=== PATIENT | female | born 1950 | race Caucasian/White ===

== ENCOUNTER 2018-04-04 02:21 | Outpatient (RCR) | payer MEDICARE, SELFPAY ==
[2018-04-04] MEDS: Normal Saline Flush 10 ML SYR IVP (09:57)
== END 2018-04-17 23:59 | disposition home or self-care (01) ==
LOC: INF 02:21
PROVIDERS: PCP Nurse Practitioner Family; Visit Provider Internal Medicine
DX: M81.0 Age-related osteoporosis without current pathological fracture (principal)
CPT/HCPCS: 36415; 82306; 84156; 84166; 84520; 86335; 96365; 82565; J3489

== ENCOUNTER 2018-04-04 02:31 | Outpatient (CLI) | payer MEDICARE, SELFPAY ==
[2018-04-04 08:58] LABS: BUN 16 mg/dL (7-18); CREATININE 0.57 mg/dL (0.55-1.02)
[2018-04-04 10:36] LABS: Vitamin D 25 Total 26.3 ng/ml (30-100)
[2018-04-07 15:45] LABS: Albumin 100 %; Total Protein <4 mg/dL
== END 2018-04-04 02:51 ==
PROVIDERS: PCP Nurse Practitioner Family; Visit Provider Internal Medicine Endocrinology, Diabetes & Metabolism
DX: M81.0 Age-related osteoporosis without current pathological fracture (principal)
CPT/HCPCS: 36415; 82306; 84156; 84166; 84520; 86335; 82565

== ENCOUNTER 2019-03-02 11:15 | Emergency (ER) | payer MEDICARE, SELFPAY ==
[2019-03-02 11:20] VITALS: BP 169/81; PULSE 78; RESP 16; TEMP 36.8; O2SAT 97
--- NOTE | 2019-03-02 11:48 | DI.RAD_ITS ---
EXAM: XR SHOULDER LT COMPLETE 2+V and left humerus and left elbow INDICATION: pain, injury. COMPARISON: XR ELBOW LT COMPLETE from 03/02/2019 XR HUMERUS LT from 03/02/2019 TECHNIQUE: 2D digital imaging was performed. FINDINGS: There is a comminuted nondisplaced fracture through the surgical neck of left humerus. There does ap pear to be extension into the greater tuberosity. There is inferior subluxation of the humeral head relative to the glenoid. No other fracture or dislocation is appreciated. The bones are osteopenic. No radiopaque foreign bodies are seen in the soft tissues. IMPRESSION: Comminuted nondisplaced fracture involving the surgical neck of the left humerus. Inferior subluxation of the humeral head relative to the glenoid.
--- NOTE | 2019-03-02 14:22 | ED.GENADUL_ITS ---
Discharge Plan Disposition Patient Disposition: HOME Condition: Good Discharge Details Chief Complaint: Orthopedic Clinical Impression: Fracture, humerus Primary Care Provider: Anuja Flood ED Provider: Tracy Rivas Home Meds and New Rx's Prescriptions: No Action trazodone 50 MG tablet 25 mg PO HS RF: 0 ibuprofen 200 MG tablet 200 mg PO DAILY PRN PRNRF: 0 Lubricant Eye (PG-PEG 400)(PF) 1 EACH dropperette 1 ea Ophthalmic DIRECTED RF: 0 Discharge Instructions Instructions: Proximal Humerus Fracture (ED) Additional Instructions: Ice to the area of pain. Use sling for 3 to 5 days. Tylenol for soreness if needed. Rest activities as tolerated Follow-up with orthopedic doctor as a outpatient in the next week. Please call for earliest available appointment. Return to the emergency room for any worsening, concerns or alarming symptoms sooner if needed specifically for numbness, tingling or weakness of the hand or arm Referrals: Maurice Barrios MD [ [facility] STAFF PHYSICIAN] - Discharge Data Discharge Date/Time-TO BE ENTERED AT DEPARTURE: 03/02/19 14:35 Medical Decision Making Is a 5-year-old patient presents 4 days after a trip and fall. Resulting in left arm pain. Patient denies any other identifiable injuries. Patient has no sign or symptom of head injury at this time. Patient has isolated left arm pain on exam. Proximal humeral tenderness. Difficulty with any overhead range of motion. X-rays were obtained. Patient declines any medication service at this time. FINDINGS: There is a comminuted nondisplaced fracture through the surgical neck of left humerus. There does appear to be extension into the greater tuberosity. There is inferior subluxation of the humeral head relative to the glenoid. No other fracture or dislocation is appreciated. The bones are osteopenic. No radiopaque foreign bodies are seen in the soft tissues. IMPRESSION: Comminuted nondisplaced fracture involving the surgical neck of the left humerus. Inferior subluxation of the humeral head relative to the glenoid. Discussed findings with the patient. Patient was placed in a left arm sling. Rice discussed. Pendulum exercises discussed. Use of sling encouraged for no more than 3 to 5 days. Encouraged orthopedic follow-up for reevaluation. Offered pain management patient declines. The patient was stable and requested discharge. Prior to discharge, my usual and customary return precautions were reviewed with the patient - this included follow-up instructions and reasons to return to the Emergency Department if conditions worsens, does not improve as expected, or other new concerns arise. Inferior subluxation of the humeral head was discussed with Dr. Barrios who will follow with the patient in the office, no additional management needed at this time. HPI General Date/Time Provider Initiated Documentation: 03/02/19 11:48 . HPI Narrative: Is a 68-year-old patient who sustained a fall approximately 4 days ago. Patient reports she tripped and fell landing onto her right arm. Patient is concerned as she reports a right shoulder pain which is persistent since that time. Difficulty lifting her arm overhead. Patient reports pain extends from her shoulder to her elbow. Denies any distal pain associated. Patient does report striking her head, is not on a blood thinner, denies any headache, dizziness, nausea, vomiting or head injury symptoms at this time. Patient denies associated neck or back pain. Patient denies any lower extremity injury, reports walking without any difficulty. Shoulder pain is minimally relieved with [id number] medications. Worse with range of motion. Related Data Home Medications Medication Instructions Recorded Confirmed ibuprofen 200 mg PO DAILY PRN PRN 08/25/17 03/02/19 peg 400-propylene glycol (PF) 1 ea OPHTHALMIC DIRECTED 08/25/17 03/02/19 [Lubricant Eye 0.4%-0.3% Drops] trazodone 25 mg PO HS 08/25/17 03/02/19 Allergies Allergy/AdvReac Type Severity Reaction Status Date / Time No Known Allergies Allergy Unverified 03/02/19 11:32 General Stated Complaint: Orthopedic VISHNU: 4 Review of Systems All systems reviewed & are unremarkable except as noted in HPI and below Constitutional Constitutional: Denies frequent falls, Denies headache(s) and Denies lethargy Eyes Eyes: Denies blurry vision ENT Ears, Nose, Mouth, and Throat: Denies headache(s) and Denies neck pain Musculoskeletal Musculoskeletal: Denies back pain, Denies neck pain, Denies numbness and Denies tingling Neurologic Neurologic: Denies frequent falls, Denies headache(s), Denies numbness and Denies tingling [facility] Social History (Reviewed 03/02/19 @ 17:56 by KYLEE Ruiz Smoking/Tobacco Use Status: Former Tobacco Use Alcohol Intake: current Alcohol Intake frequency: a few times a week Alcohol type: beer Drug use: Never Details: quit smoking 12+ years ago Do you feel safe at home: Yes Do you feel safe in your relationship?: Yes Exam Narrative Exam Narrative: CONST: Healthy appearing patient, in no acute distress. Well hydrated. Alert and alert. NECK: Normal visual inspection. FROM. Trachea midline. No Midline tenderness. CHEST: Normal insepection of the chest. Back: No tenderness along the spine in the midline MUSCULOSKELETAL: Normal Gait. Limited range of motion of the left arm. Unable to fully abduct overhead. Patient points to the proximal humerus as her site of pain. Patient does have obvious shoulder pain with palpation. There is a fullness noted in the proximal asked back of her humerus. There is a large area of ecchymosis extending through the upper arm. Mild pain through the proximal and mid humerus. No significant distal humeral tenderness. Mild elbow tenderness with palpation. Patient is able to supinate pronate the elbow without associated pain in the elbow or the wrist. No significant forearm pain with palpation. No wrist pain with palpation or range of motion. [employer] strength is intact distally. Pulses are intact distally. Sensation intact distally. No right arm complaints. Lower extremities full range of motion, lower extremity exam normal SKIN: Normal. Dry. No rashes. Large area of ecchymosis noted to the left upper arm NEURO: Alert and awake. Speech clear. PSYCH: Normal affect. Cooperative. Course Vital Signs Vital signs: Vital Signs Temperature 36.8 C 03/02/19 11:20 Pulse 78 03/02/19 11:20 Respiratory Rate 16 03/02/19 11:20 Blood Pressure 169/81 H 03/02/19 11:20 Pulse Oximetry 97 03/02/19 11:20 Temperature 36.8 C 03/02/19 11:20 Temperature Source Skin 03/02/19 11:20 Pulse 78 03/02/19 11:20 Respiratory Rate 16 03/02/19 11:20 Respiratory Effort 03/02/19 11:30 Blood Pressure 169/81 H 03/02/19 11:20 Blood Pressure Position Sitting 03/02/19 11:20 Pulse Oximetry 97 03/02/19 11:20 Oxygen Delivery Method Room Air 03/02/19 13:14 Oxygen Flow Rate 0 03/02/19 13:14 Pain Level 8 03/02/19 11:30 Comment alternating ice and heat 03/02/19 11:20
== END 2019-03-02 14:35 | disposition home or self-care (01) ==
PROVIDERS: Emergency Provider Physician Assistant; PCP Nurse Practitioner Family
DX: S42.215A Unspecified nondisplaced fracture of surgical neck of left humerus, initial encounter for closed fracture (principal); S43.032A Inferior subluxation of left humerus, initial encounter; W01.0XXA Fall on same level from slipping, tripping and stumbling without subsequent striking against object, initial encounter
CPT/HCPCS: 99283; 73030; 73060; 73080; 99282; L3650

== ENCOUNTER 2019-03-19 11:51 | Outpatient (CLI) | payer MEDICARE, SELFPAY ==
--- NOTE | 2019-03-19 11:48 | DI.RAD_ITS ---
EXAM: XR SHOULDER LT COMPLETE 2+V INDICATION: F/U FRACTURE. COMPARISON: XR SHOULDER LT COMPLETE 2+V from 03/02/2019 TECHNIQUE: 2D digital imaging was performed. FINDINGS: There has been no change in alignment of the fracture involving the proximal left humerus. There is persistent inferior subluxation of the humeral head relative to the glenoid. Bones appear osteopenic . No new fracture or dislocation is seen. The soft tissues are unremarkable.
== END 2019-03-19 12:11 ==
PROVIDERS: PCP Nurse Practitioner Family; Referring Provider Nurse Practitioner Family; Visit Provider Student in an Organized Health Care Education/Training Program
DX: S42.295D Other nondisplaced fracture of upper end of left humerus, subsequent encounter for fracture with routine healing (principal)
CPT/HCPCS: 99203; 99214; 73030

== ENCOUNTER 2019-03-27 01:36 | Outpatient (RCR) | payer MEDICARE, SELFPAY ==
[2019-03-27 12:59] LABS: CREATININE 0.57 mg/dL (0.55-1.02)
[2019-03-27] MEDS: Normal Saline Flush 10 ML SYR IVP (13:10)
== END 2019-04-17 23:59 | disposition home or self-care (01) ==
LOC: INF 01:36
PROVIDERS: Internal Medicine Endocrinology, Diabetes & Metabolism; PCP Nurse Practitioner Family; Visit Provider Internal Medicine
DX: M81.0 Age-related osteoporosis without current pathological fracture (principal); T50.905S Adverse effect of unspecified drugs, medicaments and biological substances, sequela
CPT/HCPCS: 36415; 96365; 82565; J3489

== ENCOUNTER 2019-04-23 11:44 | Outpatient (CLI) | payer MEDICARE, SELFPAY ==
--- NOTE | 2019-04-23 11:46 | DI.RAD_ITS ---
EXAM: XR SHOULDER LT COMPLETE 2+V INDICATION: f/u of left proximal humerus fracture. COMPARISON: XR SHOULDER LT COMPLETE 2+V from 03/02/2019 XR HUMERUS LT from 03/02/2019 TECHNIQUE: 2D digital imaging was performed. AP and Y-views were performed. FINDINGS: There has been no change in the alignment of the proximal humeral fracture. The humeral head remains inferiorly subluxed relative to the glenoid.
== END 2019-04-23 12:04 ==
PROVIDERS: PCP Nurse Practitioner Family; Referring Provider Nurse Practitioner Family; Visit Provider Student in an Organized Health Care Education/Training Program
DX: S42.295D Other nondisplaced fracture of upper end of left humerus, subsequent encounter for fracture with routine healing (principal); W19.XXXD Unspecified fall, subsequent encounter
CPT/HCPCS: 99213; 73030

== ENCOUNTER → 2019-06-04 12:47 | Outpatient (BNVA) | payer MEDICARE, SELFPAY | PROVIDERS: PCP Nurse Practitioner Family; Referring Provider Nurse Practitioner Family; Visit Provider Student in an Organized Health Care Education/Training Program | DX: S42.295D Other nondisplaced fracture of upper end of left humerus, subsequent encounter for fracture with routine healing; X58.XXXD Exposure to other specified factors, subsequent encounter | CPT/HCPCS: 99213 ==